=== PATIENT | female | born 1940 | race Caucasian/White ===

== ENCOUNTER 2018-05-06 15:58 | Inpatient (IN) | payer MEDICARE ==
[~2018-05-06] VITALS: Ht 157.5 cm; Wt 118.0 kg
[2018-05-06] MEDS ORDERED: SODIUM CHLORIDE 0.9% 1,000ML IVBOLUS ONE (16:30)
[2018-05-06] MEDS ORDERED: MAALOX/HYOSCYAMINE/LIDOCAINE 45 ML BTL PO ONE (16:30)
[2018-05-06] MEDS ORDERED: ONDANSETRON 2MG/ML, 2ML IVPush ONE (16:30)
[2018-05-06] MEDS ORDERED: SODIUM CHLORIDE FLUSH 10ML SYR IVF ONE (16:30)
[2018-05-06] MEDS ORDERED: FAMOTIDINE 20 MG/2 ML IVP ONE (16:30)
[2018-05-06] MEDS ORDERED: ONDANSETRON 2MG/ML, 2ML ONE (16:39)
[2018-05-06] MEDS ORDERED: MAALOX/HYOSCYAMINE/LIDOCAINE 45 ML BTL ONE (16:39)
[2018-05-06] MEDS ORDERED: FAMOTIDINE 20 MG/2 ML ONE (16:39)
[2018-05-06 16:47] LABS: BASOPHILS # (AUTO) 0.04 x10^3/uL (0-0.1); BASOPHILS % (AUTO) 0 % (0-1); EOSINOPHILS # (AUTO) 0.15 x10^3/uL (0-0.4); EOSINOPHILS % (AUTO) 1 % (1-7); LYMPHOCYTES # (AUTO) 1.54 x10^3/uL (1-3.4); LYMPHOCYTES % (AUTO) 12 % (22-44); MD NO; MEAN CORPUSCULAR HGB CONC 33.6 g/dL (32.4-35.8); MEAN CORPUSCULAR VOLUME 95.2 fL (80-100); MEAN PLATELET VOLUME 7.7 fL (7.4-10.4); MONOCYTES % (AUTO) 11 % (2-9); NEUTROPHILS # (AUTO) 9.57 x10^3/uL (1.8-6.8); NEUTROPHILS % (AUTO) 75 % (42-75); PLATELET COUNT 216 x10^3/uL (130-400); RED BLOOD COUNT 4.41 x10^6/uL (3.82-5.3); RED CELL DISTRIBUTION WIDTH 14.3 % (9.6-15.2)
[2018-05-06 16:59] LABS: ALANINE AMINOTRANSFERASE 19 U/L (12-78); ALBUMIN 3.5 g/dL (3.4-5.0); ANION GAP 12 mmol/L (5-15); CALCIUM 9.1 mg/dL (8.5-10.1); CHLORIDE 102 mmol/L (98-107)
[2018-05-06 17:01] LABS: ALKALINE PHOSPHATASE 76 U/L (45-117); BILIRUBIN,TOTAL 0.5 mg/dL (0.2-1.0); TOTAL PROTEIN 7.3 g/dL (6.4-8.2)
[2018-05-06] MEDS ORDERED: OMNIPAQUE 350 MG/ML, 100ML BOTTLE ONE (17:59)
[2018-05-06 20:42] VITALS: BP 158/56
[2018-05-06] MEDS ORDERED: ONDANSETRON 2MG/ML, 2ML IVPush PRN (22:30)
[2018-05-06] MEDS ORDERED: hydrALAzine 20 MG/ML, 1ML IVPush PRN (22:30)
[2018-05-06] MEDS ORDERED: GUAIFENESIN/COD200MG-20MG/10ML LIQUID PO PRN (22:30)
[2018-05-06] MEDS ORDERED: DOCUSATE 100 MG CAPSULE PO PRN (22:30)
[2018-05-06] MEDS: D5%-0.45NACL+KCL 20MEQ 1,000 ML IV SCH (23:37)
[2018-05-06 23:41] LABS: TROPONIN I < 0.015 ng/mL (0.000-0.045)
[2018-05-07 01:28] LABS: OCCULT BLOOD POSITIVE (NEGATIVE)
[2018-05-07 01:55] LABS: CLOSTRIDIUM DIFFICILE ANTIGEN NEGATIVE; CLOSTRIDIUM DIFFICILE TOXIN NEGATIVE (Negative)
[2018-05-07 02:11] VITALS: BP 159/78
[2018-05-07] MEDS ORDERED: GABA-826 PO (04:04)
[2018-05-07] MEDS ORDERED: [UNRECOGNIZED DRUG - CODE] PO (04:38)
[2018-05-07] MEDS ORDERED: LOVA40TA2 PO (04:39)
[2018-05-07] MEDS ORDERED: METO200T47 PO (04:41)
[2018-05-07] MEDS ORDERED: LISI-420 PO (04:42)
[2018-05-07 05:28] LABS: BASOPHILS # (AUTO) 0.04 x10^3/uL (0-0.1); BASOPHILS % (AUTO) 0 % (0-1); EOSINOPHILS # (AUTO) 0.01 x10^3/uL (0-0.4); EOSINOPHILS % (AUTO) 0 % (1-7); LYMPHOCYTES # (AUTO) 0.79 x10^3/uL (1-3.4); LYMPHOCYTES % (AUTO) 7 % (22-44); MD NO; MEAN CORPUSCULAR HEMOGLOBIN 32.5 pg (27.0-34.8); MEAN CORPUSCULAR VOLUME 95.4 fL (80-100); MEAN PLATELET VOLUME 7.6 fL (7.4-10.4); MONOCYTES # (AUTO) 1.43 x10^3/uL (0.2-0.8); MONOCYTES % (AUTO) 13 % (2-9); NEUTROPHILS # (AUTO) 9.01 x10^3/uL (1.8-6.8); NEUTROPHILS % (AUTO) 80 % (42-75); PLATELET COUNT 221 x10^3/uL (130-400); RED BLOOD COUNT 3.89 x10^6/uL (3.82-5.3); RED CELL DISTRIBUTION WIDTH 14.5 % (9.6-15.2)
[2018-05-07 05:37] LABS: ANION GAP 9 mmol/L (5-15); CHLORIDE 104 mmol/L (98-107); CHOLESTEROL, TOTAL 137 mg/dL (140-239); CREATININE 1.07 mg/dL (0.55-1.02); TRIGLYCERIDES 58 mg/dL (50-200); VLDL CHOLESTEROL 12 mg/dL (0-25)
[2018-05-07 05:41] LABS: CHOL/HDL RATIO 2.2; HDL CHOL % 45 % (28-40); HDL CHOLESTEROL (DIRECT) 62 mg/dL (40-60); LDL CHOLESTEROL,CALCULATED 63 mg/dL (54-169); TROPONIN I < 0.015 ng/mL (0.000-0.045)
[2018-05-07 05:47] LABS: THYROID STIMULATING HORMONE 0.816 mIU/L (0.358-3.740)
[2018-05-07] MEDS: METOPROLOL SUCCINATE 25 MG TAB.ER.24H PO SCH (06:00)
[2018-05-07 06:31] VITALS: BP 100/61
[2018-05-07] MEDS: GABAPENTIN 300 MG CAPSULE PO SCH (08:19)
[2018-05-07] MEDS: PANTOPRAZOLE 40 MG IV IVPush SCH (08:19)
[2018-05-07] MEDS: ANASTROZOLE 1 MG TABLET PO SCH (08:19)
[2018-05-07 08:40] VITALS: BP 101/49
[2018-05-07] MEDS ORDERED: CEFTRIAXONE PMX 1GM/50ML 50 ML IV SCH (09:30)
[2018-05-07] MEDS: D5%-0.45NACL+KCL 20MEQ 1,000 ML IV SCH (09:43)
[2018-05-07] MEDS ORDERED: METRONIDAZOLE PMX 500MG/100ML 100 ML IV SCH (10:00)
[2018-05-07 12:33] LABS: TROPONIN I < 0.015 ng/mL (0.000-0.045)
[2018-05-07] MEDS: METRONIDAZOLE PMX 500MG/100ML 100 ML IV SCH ×2 (13:00→20:22)
[2018-05-07 14:20] VITALS: BP 122/50
[2018-05-07 19:47] LABS: CULTURE INDICATED? YES; MICROSCOPIC INDICATED
[2018-05-07 20:00] VITALS: BP 105/41
[2018-05-07] MEDS: ACETAMINOPHEN 325 MG TABLET PO PRN (20:22)
[2018-05-07] MEDS: LOVASTATIN 40 MG TABLET PO SCH (20:22)
[2018-05-08] VITALS (7 sets, daily range): BP systolic 107–154; BP diastolic 50–77
[2018-05-08] MEDS: D5%-0.45NACL+KCL 20MEQ 1,000 ML IV SCH ×2 (00:38→21:04)
[2018-05-08] MEDS: METRONIDAZOLE PMX 500MG/100ML 100 ML IV SCH ×3 (05:11→21:04)
[2018-05-08] MEDS: METOPROLOL SUCCINATE 25 MG TAB.ER.24H PO SCH (05:12)
[2018-05-08 05:19] LABS: BASOPHILS # (AUTO) 0.04 x10^3/uL (0-0.1); BASOPHILS % (AUTO) 0 % (0-1); EOSINOPHILS # (AUTO) 0.07 x10^3/uL (0-0.4); EOSINOPHILS % (AUTO) 1 % (1-7); LYMPHOCYTES # (AUTO) 0.87 x10^3/uL (1-3.4); LYMPHOCYTES % (AUTO) 8 % (22-44); MD NO; MEAN CORPUSCULAR HEMOGLOBIN 32.1 pg (27.0-34.8); MEAN CORPUSCULAR HGB CONC 33.6 g/dL (32.4-35.8); MEAN CORPUSCULAR VOLUME 95.6 fL (80-100); MEAN PLATELET VOLUME 7.6 fL (7.4-10.4); MONOCYTES # (AUTO) 1.37 x10^3/uL (0.2-0.8); MONOCYTES % (AUTO) 13 % (2-9); NEUTROPHILS # (AUTO) 8.51 x10^3/uL (1.8-6.8); NEUTROPHILS % (AUTO) 78 % (42-75); PLATELET COUNT 184 x10^3/uL (130-400); RED CELL DISTRIBUTION WIDTH 14.2 % (9.6-15.2)
[2018-05-08 05:33] LABS: ALBUMIN 2.8 g/dL (3.4-5.0); ANION GAP 7 mmol/L (5-15); CALCIUM 7.6 mg/dL (8.5-10.1); CHLORIDE 105 mmol/L (98-107); CREATININE 0.69 mg/dL (0.55-1.02)
[2018-05-08] MEDS ORDERED: MAGNESIUM SULFATE 1 GM in SODIUM CHLORIDE 0.9% 50 ML IV ONE (07:00)
[2018-05-08] MEDS: ANASTROZOLE 1 MG TABLET PO SCH (07:49)
[2018-05-08] MEDS: PANTOPRAZOLE 40 MG IV IVPush SCH (07:51)
[2018-05-08] MEDS: GABAPENTIN 300 MG CAPSULE PO SCH (07:51)
[2018-05-08 08:06] LABS: INTERNATIONAL NORMALIZED RATIO 1.01 (0.93-1.1); PROTHROMBIN TIME 10.7 Seconds (9.6-11.5)
[2018-05-08] MEDS: CEFTRIAXONE PMX 1GM/50ML 50 ML IV SCH (09:33)
[2018-05-08] MEDS: LOVASTATIN 40 MG TABLET PO SCH (21:04)
[2018-05-08] MEDS: ACETAMINOPHEN 325 MG TABLET PO PRN (21:14)
[2018-05-09 01:36] VITALS: BP 127/68
[2018-05-09] MEDS: METRONIDAZOLE PMX 500MG/100ML 100 ML IV SCH ×2 (05:16→12:46)
[2018-05-09] MEDS: METOPROLOL SUCCINATE 25 MG TAB.ER.24H PO SCH (05:17)
[2018-05-09 06:02] LABS: BASOPHILS # (AUTO) 0.02 x10^3/uL (0-0.1); BASOPHILS % (AUTO) 0 % (0-1); EOSINOPHILS # (AUTO) 0.17 x10^3/uL (0-0.4); EOSINOPHILS % (AUTO) 2 % (1-7); LYMPHOCYTES % (AUTO) 10 % (22-44); MD NO; MEAN CORPUSCULAR HEMOGLOBIN 33.4 pg (27.0-34.8); MEAN CORPUSCULAR HGB CONC 35.3 g/dL (32.4-35.8); MEAN CORPUSCULAR VOLUME 94.8 fL (80-100); MEAN PLATELET VOLUME 7.2 fL (7.4-10.4); MONOCYTES # (AUTO) 1.34 x10^3/uL (0.2-0.8); MONOCYTES % (AUTO) 13 % (2-9); NEUTROPHILS # (AUTO) 7.55 x10^3/uL (1.8-6.8); NEUTROPHILS % (AUTO) 75 % (42-75); PLATELET COUNT 179 x10^3/uL (130-400); RED BLOOD COUNT 3.14 x10^6/uL (3.82-5.3); RED CELL DISTRIBUTION WIDTH 14.3 % (9.6-15.2)
[2018-05-09 06:09] LABS: ALBUMIN 2.5 g/dL (3.4-5.0); ANION GAP 7 mmol/L (5-15); CALCIUM 7.1 mg/dL (8.5-10.1); CHLORIDE 108 mmol/L (98-107)
[2018-05-09] MEDS ORDERED: POTASSIUM CHLORIDE 10 MEQ in LACTATED RINGERS 1,000 ML IV SCH (06:30)
[2018-05-09] MEDS ORDERED: POTASSIUM CHLORIDE 20 MEQ in SODIUM CHLORIDE 0.9% 250 ML IV ONE (06:30)
[2018-05-09 07:48] VITALS: BP 163/83
[2018-05-09] MEDS: PANTOPRAZOLE 40 MG IV IVPush SCH (08:27)
[2018-05-09] MEDS: GABAPENTIN 300 MG CAPSULE PO SCH (08:27)
[2018-05-09] MEDS: CEFTRIAXONE PMX 1GM/50ML 50 ML IV SCH (10:19)
[2018-05-09] MEDS: ANASTROZOLE 1 MG TABLET PO SCH (10:30)
[2018-05-09 12:31] VITALS: BP 140/82
[2018-05-09] MEDS ORDERED: POTASSIUM CHLORIDE 10% 20 MEQ/15 ML UDC PO ONE (14:30)
[2018-05-09] MEDS ORDERED: POTASSIUM CHLORIDE 20 MEQ PACKET ONE (15:25)
[2018-05-09] MEDS: PIPERACILLIN/TAZO/PMX 3.375GM 50 ML IV SCH ×2 (15:32→20:17)
[2018-05-09] MEDS: LOVASTATIN 40 MG TABLET PO SCH (20:17)
[2018-05-09 21:34] VITALS: BP 137/67
[2018-05-09 21:37] VITALS: BP_SYST 113; BP_SYST 126; BP_SYST 143; BP_DIAS 52; BP_DIAS 64; BP_DIAS 82
[2018-05-10] MEDS: PIPERACILLIN/TAZO/PMX 3.375GM 50 ML IV SCH ×2 (02:03→08:00)
[2018-05-10 02:04] VITALS: BP 130/76
[2018-05-10 04:40] LABS: BASOPHILS # (AUTO) 0.02 x10^3/uL (0-0.1); BASOPHILS % (AUTO) 0 % (0-1); EOSINOPHILS % (AUTO) 2 % (1-7); LYMPHOCYTES # (AUTO) 1.15 x10^3/uL (1-3.4); LYMPHOCYTES % (AUTO) 13 % (22-44); MD NO; MEAN CORPUSCULAR HEMOGLOBIN 31.7 pg (27.0-34.8); MEAN CORPUSCULAR HGB CONC 33.2 g/dL (32.4-35.8); MEAN CORPUSCULAR VOLUME 95.5 fL (80-100); MEAN PLATELET VOLUME 7.5 fL (7.4-10.4); MONOCYTES # (AUTO) 1.08 x10^3/uL (0.2-0.8); MONOCYTES % (AUTO) 12 % (2-9); NEUTROPHILS # (AUTO) 6.27 x10^3/uL (1.8-6.8); NEUTROPHILS % (AUTO) 72 % (42-75); PLATELET COUNT 222 x10^3/uL (130-400); RED BLOOD COUNT 3.65 x10^6/uL (3.82-5.3)
[2018-05-10 04:48] LABS: CHLORIDE 104 mmol/L (98-107)
[2018-05-10 04:54] LABS: ALBUMIN 3.1 g/dL (3.4-5.0); ANION GAP 8 mmol/L (5-15); CALCIUM 8.3 mg/dL (8.5-10.1); CREATININE 0.78 mg/dL (0.55-1.02)
[2018-05-10 05:34] VITALS: BP 135/87
[2018-05-10] MEDS: METOPROLOL SUCCINATE 25 MG TAB.ER.24H PO SCH (05:36)
[2018-05-10 07:17] VITALS: BP 125/77
[2018-05-10] MEDS: PANTOPRAZOLE 40 MG IV IVPush SCH (08:01)
[2018-05-10] MEDS: GABAPENTIN 300 MG CAPSULE PO SCH (08:01)
[2018-05-10] MEDS: ANASTROZOLE 1 MG TABLET PO SCH (08:06)
[2018-05-10] MEDS ORDERED: LEVO750T6 PO (08:17)
[2018-05-10] MEDS ORDERED: LEVOFLOXACIN 750 MG TABLET PO SCH (08:30)
[2018-05-10 09:08] VITALS: BP 133/74
== END 2018-05-10 11:29 | disposition home or self-care (01) | DRG 377 ==
LOC: ED 17:20 → EDIP 19:29 → 4WST 20:12
PROVIDERS: ADMIT Internal Medicine; ATTEND Internal Medicine
DX: K92.2 Gastrointestinal hemorrhage, unspecified (principal); N17.0 Acute kidney failure with tubular necrosis; R65.11 Systemic inflammatory response syndrome (SIRS) of non-infectious origin with acute organ dysfunction; A04.8 Other specified bacterial intestinal infections; E87.2 Acidosis; E86.0 Dehydration; I10 Essential (primary) hypertension; D72.829 Elevated white blood cell count, unspecified; E78.5 Hyperlipidemia, unspecified; Z92.21 Personal history of antineoplastic chemotherapy; Z90.710 Acquired absence of both cervix and uterus; Z85.42 Personal history of malignant neoplasm of other parts of uterus; Z85.3 Personal history of malignant neoplasm of breast; Z80.3 Family history of malignant neoplasm of breast; Z79.899 Other long term (current) drug therapy; Z79.1 Long term (current) use of non-steroidal anti-inflammatories (NSAID); Z79.2 Long term (current) use of antibiotics; Z90.12 Acquired absence of left breast and nipple; B96.5 Pseudomonas (aeruginosa) (mallei) (pseudomallei) as the cause of diseases classified elsewhere
CPT/HCPCS: 36415; 70450; 74177; 80048; 80053; 80061; 81001; 82040; 82272; 83605; 83690; 83735; 84100; 84443; 84484; 85014; 85018; 85025; 85610; 85730; 87040; 87046; 87086; 87324; 87427; 93005; 93306; 93880; 95819; 99285; G0378; J0696; J2543; J3475; J3480; Q9967; C9113; J7030; J7050; J7120